=== PATIENT | female | born 1980 | race African-American/Black ===

== ENCOUNTER 2016-11-16 21:32 | Emergency (ER) | payer MEDICAID, OTHER ==
[~2016-11-16 21:32] MED LIST: HYDR12.58 PO; LISI40TA PO
[2016-11-16 22:10] VITALS: BP 158/97
--- NOTE | 2016-11-16 22:17 | PHYS DOC ---
Past History Past Medical History: Diabetes, Hypertension Past Surgical History: Past Surgical History mandible surgery Smoking: Non-smoker Alcohol Use: None Drug Use: None Adult General HPI HPI Patient is a 36 year old female who presents with multiple complaints but the primary one being dental pain. She states her teeth been hurting for the past couple days. The there were chop primarily. She does have chronic dental issues. Her other complaints include headache, knee pain, back pain. These other complaints are chronic in nature with no acute changes. She denies any fever. No difficulty swallowing. Review of Systems Review of Systems Constitutional: Denies fever or chills Eyes: Denies change in visual acuity, redness, or eye pain HENT: Denies nasal congestion or sore throat; poor dentition, dental pain Respiratory: Denies cough or shortness of breath Cardiovascular: No additional information not addressed in HPI. Denies chest pain GI: Denies abdominal pain, nausea, vomiting, bloody stools or diarrhea : Denies dysuria or hematuria Musculoskeletal: Chronic back and knee pain Integument: Denies rash or skin lesions Neurologic: Chronic headaches, no focal weakness or sensory changes; no visual changes Endocrine: Denies polyuria or polydipsia Allergies Allergies Allergies Coded Allergies Type Severity Reaction Last Updated Verified Penicillins Allergy Unknown 12/30/15 Yes Physical Exam Physical Exam Constitutional: Well developed, well nourished, no acute distress, non-toxic appearance. HENT: Normocephalic, atraumatic, bilateral external ears normal, oropharynx moist, no oral exudates, nose normal. Extremely poor dentition with multiple missing teeth. Mid lower mandible with the most pain however no periapical swelling or abscess noted. No subungual swelling. No drooling. No stridor. Eyes: PERRLA, EOMI, conjunctiva normal, no discharge. Neck: Normal range of motion, no tenderness, supple, no stridor. Cardiovascular:Heart rate regular rhythm, no murmur Lungs & Thorax: Bilateral breath sounds clear to auscultation Abdomen: Bowel sounds normal, soft, no tenderness, no masses, no pulsatile masses. Skin: Warm, dry, no erythema, no rash. Back: No tenderness, no CVA tenderness. Extremities: No tenderness, no cyanosis, no clubbing, ROM intact, no edema. Ambulated without difficulty Neurologic: Alert and oriented X 3, normal motor function, normal sensory function, no focal deficits noted. Psychologic: Affect normal, judgement normal, mood normal. Current Patient Data Vital Signs Vital Signs Date Time Temp Pulse Resp B/P (MAP) Pulse Ox O2 Delivery O2 Flow Rate FiO2 11/16/16 22:10 97.9 99 20 100 Room Air 158/97 BP at initial presentation Course & Med Decision Making Course & Med Decision Making Patient with multiple complaints but focused on her teeth. She has chronically poor dentition. No evidence of oral abscess or airway compromise. He has no acute neurologic deficits. Will place on tramadol for pain; clindamycin and peridex mouth rinses. Do not feel narcotic pain medication is warranted at this time. [facility] showed no Rx filled. Dragon Disclaimer Dragon Disclaimer This chart was dictated in whole or in part using Voice Recognition software in a busy, high-work load, and often noisy Emergency Department environment. It may contain unintended and wholly unrecognized errors or omissions. Departure Departure: Referrals: PCP,NO (PCP) Scripts Chlorhexidine Gluconate (PERIDEX) 15 Ml Mouthwash 15-30 ML PO TID, #473 ML 3 Refills Prov: GLENYS VELAZQUEZ MD 11/16/16 Tramadol Hcl/Acetaminophen (TRAMADOL-ACETAMINOPHN 37.5-325) 1 Each Tablet 1 TAB PO Q4-6HRS, #10 TAB Prov: GLENYS VELAZQUEZ MD 11/16/16 Clindamycin Hcl (CLINDAMYCIN HCL) 300 Mg Capsule 1 CAP PO TID, #21 CAP Prov: GLENYS VELAZQUEZ MD 11/16/16 GLENYS VELAZQUEZ MD November 16, 2016 22:17
[2016-11-16] MEDS ORDERED: CLIN300C8 PO (22:47)
[2016-11-16] MEDS ORDERED: TRAM1TAB4 PO (22:48)
[2016-11-16] MEDS ORDERED: CHLO15MO2 PO (22:48)
== END 2016-11-16 23:00 | disposition home or self-care (01) ==
LOC: ER 21:32
DX: K08.89 Other specified disorders of teeth and supporting structures (principal); G89.29 Other chronic pain; E11.9 Type 2 diabetes mellitus without complications; I10 Essential (primary) hypertension; Z88.0 Allergy status to penicillin
CPT/HCPCS: 99283